=== PATIENT | male | born 1985 | race American Indian/Alaskan Native ===

== ENCOUNTER 2021-07-13 09:27 | Emergency (ER) | payer SELFPAY ==
[2021-07-13] MEDS ORDERED: KETOROLAC 30 MG/1 ML INJ IV ONE (11:15)
--- NOTE | 2021-07-13 11:18 | Emergency Department Report ---
ED General Adult HPI - General Chief complaint: Wound/Laceration Stated complaint: RECTUM WOUND WITH DRAINAGE Time Seen by Provider: 07/13/21 10:39 Source: patient, EMS Mode of arrival: Stretcher Limitations: No Limitations - History of Present Illness Initial comments: 36-year-old -[place] male patient presents with complaints of intermittent pain and drainage around the rectal for the past month. He reports over the past few days he has began having body aches and chills and fatigue. He reports history of a pilonidal cyst which she has surgically removed a long time ago and that he is now having pain in that same area again. He rates his current pain as a 9/10 in severity. He denies any abdominal pain. He states he is still defecating, however the pain worsens with defecation. No melena/hematochezia or nausea/vomiting or fever per patient. Other past medical history includes some type of colitis per patient. - Related Data Previous Rx's Medication Instructions Recorded Last Taken Type Acetaminophen/Codeine [Tylenol 1 tab PO Q8H PRN #10 tab 07/13/21 Unknown Rx /Codeine # 3 tab] Amoxicillin/Potassium Clav 1 each PO BID 10 Days #20 tab 07/13/21 Unknown Rx [Augmentin 875-125 Tablet] Ibuprofen [Motrin 800 MG tab] 800 mg PO Q8HR PRN #20 tablet 07/13/21 Unknown Rx Mupirocin [Bactroban 2% OINT] 1 applic TP TID 10 Days #1 tube 07/13/21 Unknown Rx Sulfamethoxazole/Trimethoprim 1 each PO BID 10 Days #20 tab 07/13/21 Unknown Rx [Bactrim DS TAB] ED Review of Systems ROS: Stated complaint: RECTUM WOUND WITH DRAINAGE Other details as noted in HPI Constitutional: see HPI Respiratory: cough. denies: shortness of breath Cardiovascular: denies: chest pain Gastrointestinal: denies: abdominal pain, nausea, vomiting Genitourinary: denies: urgency, dysuria, frequency, hematuria ED Past Medical Hx - Medications Home Medications: Home Medications Medication Instructions Recorded Confirmed Last Taken Type Acetaminophen/Codeine [Tylenol 1 tab PO Q8H PRN #10 tab 07/13/21 Unknown Rx /Codeine # 3 tab] Amoxicillin/Potassium Clav 1 each PO BID 10 Days #20 tab 07/13/21 Unknown Rx [Augmentin 875-125 Tablet] Ibuprofen [Motrin 800 MG tab] 800 mg PO Q8HR PRN #20 tablet 07/13/21 Unknown Rx Mupirocin [Bactroban 2% OINT] 1 applic TP TID 10 Days #1 tube 07/13/21 Unknown Rx Sulfamethoxazole/Trimethoprim 1 each PO BID 10 Days #20 tab 07/13/21 Unknown Rx [Bactrim DS TAB] ED Physical Exam - General Limitations: No Limitations General appearance: alert, in no apparent distress, obese - Head Head exam: Present: atraumatic, normocephalic - Neck Neck exam: Present: normal inspection - Respiratory Respiratory exam: Absent: respiratory distress - Cardiovascular Cardiovascular Exam: Present: regular rate, normal rhythm - GI/Abdominal GI/Abdominal exam: Present: soft. Absent: tenderness - Rectal Rectal exam: Present: other (Tenderness noted to the outside of the anus with small opening with active purulent drainage noted to right inner buttock which appears to be a fistula; there is surrounding induration; no obvious cellulitis or pilonidal abscess) - Neurological Exam Neurological exam: Present: alert, oriented X3 - Psychiatric Psychiatric exam: Present: normal affect, normal mood - Skin Skin exam: Present: warm, dry, intact, normal color. Absent: rash ED Course Vital Signs 07/13/21 10:57 Temperature 98.9 F Pulse Rate 85 Respiratory 18 Rate Blood Pressure 151/94 O2 Sat by Pulse 96 Oximetry ED Medical Decision Making - Lab Data Result diagrams: 07/13/21 11:45 07/13/21 11:45 Lab Results 07/13/21 07/13/21 Range/Units 11:45 11:45 WBC 6.5 (4.5-11.0) K/mm3 RBC 5.20 H (3.65-5.03) M/mm3 Hgb 13.7 (11.8-15.2) gm/dl Hct 43.1 (35.5-45.6) % MCV 83 L (84-94) fl MCH 26 L (28-32) pg MCHC 32 (32-34) % RDW 15.9 H (13.2-15.2) % Plt Count 433 (140-440) K/mm3 Lymph % (Auto) 29.6 (13.4-35.0) % Clayton % (Auto) 6.5 (0.0-7.3) % Eos % (Auto) 0.2 (0.0-4.3) % Baso % (Auto) 0.8 (0.0-1.8) % Lymph # (Auto) 1.9 (1.2-5.4) K/mm3 Clayton # (Auto) 0.4 (0.0-0.8) K/mm3 Eos # (Auto) 0.0 (0.0-0.4) K/mm3 Baso # (Auto) 0.1 (0.0-0.1) K/mm3 Seg Neutrophils % 62.9 (40.0-70.0) % Seg Neutrophils # 4.1 (1.8-7.7) K/mm3 Sodium 144 (137-145) mmol/L Potassium 4.5 (3.6-5.0) mmol/L Chloride 108.6 H (98-107) mmol/L Carbon Dioxide 25 (22-30) mmol/L Anion Gap 15 mmol/L BUN 8 L (9-20) mg/dL Creatinine 0.9 (0.8-1.3) mg/dL Estimated GFR > 60 ml/min BUN/Creatinine Ratio 9 % Glucose 98 (75-100) mg/dL Calcium 9.9 (8.4-10.2) mg/dL - Radiology Data Radiology results: report reviewed CT abdomen pelvis w con INDICATION / CLINICAL INFORMATION: rectal pain, drainage OMNI 300 100ML. TECHNIQUE: Axial CT imaging of abdomen and pelvis was obtained with IV contrast. Coronal and sagittal reformatted imaging obtained and reviewed. All CT scans at this location are performed using CT dose reduction for ALARA by means of automated exposure control. COMPARISON: None available. FINDINGS: CT abdomen with contrast demonstrates normal appearance of the liver, spleen, pancreas, kidneys, and adrenal glands. Gallbladder is present and without visible abnormality. No biliary dilatation. Abdominal aorta is unremarkable. CT pelvis with contrast demonstrates focal inflammatory change in the soft tissues adjacent to the right side of the rectum. There is appears to be a sinus tract extending from the right side of the rectum to the intragluteal cleft on the right. I do not see drainable fluid however, the overall appearance is worrisome for either rectal fistula with or without abscess. No additional abnormal findings are seen within the pelvis. GI tract otherwise is unremarkable. A normal appendix is present in the right lower quadrant. There are multiple ill-defined pulmonary opacities/masses present in both lung bases, but no pleural effusion. The largest opacity/mass is in the right posterior lung base measuring 12 mm. No cavitation noted. These are favored to be infectious or inflammatory in etiology, but malignancy is not included. Visualized skeletal structures demonstrate hardware in the right ilium, but no acute abnormality. IMPRESSION: 1. Inflammatory process seen adjacent to the right side of the rectum extending to the skin of the intergluteal cleft. 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 It is difficult to discern whether there is small accompanying abscess. 2. Additionally there are pulmonary opacities/masses within both lung bases. I would favor inflammatory/infectious over malignancy. Certainly the possibility of atypical pneumonias should be considered. - Medical Decision Making 36-year-old -[place] male patient presents with complaints of intermittent pain and drainage around the rectal for the past month. He reports over the past few days he has began having body aches and chills and fatigue. He reports history of a pilonidal cyst which she has surgically removed a long time ago and that he is now having pain in that same area again. He rates his current pain as a 9/10 in severity. He denies any abdominal pain. He states he is still defecating, however the pain worsens with defecation. No me nory/hematochezia or nausea/vomiting or fever per patient. Other past medical history includes some type of colitis per patient. White count is normal CBC. No acute abnormalities noted on BMP. CT shows the followin. Inflammatory process seen adjacent to the right side of the rectum extending to the skin of the intergluteal cleft. Overall appearance is most likely secondary to rectal fi stula. It is difficult to discern whether there is small accompanying abscess. 2. Additionally there are pulmonary opacities/masses within both lung bases. I would favor inflammatory/infectious over malignancy. Certainly the possibility of atypical pneumonias should be considered. Will treat perianal infection with Augmentin patient admits to cough without shortness of breath or hemoptysis. Given findings in lung bases on CT, will treat for atypical pneumonia with Bactrim. He denies history of HIV. Recommend follow-up with a primary care provider for further evaluation and STI testing within the next 5 days. Patient also recommended to get COVID-19 testing within the next 2 days and self quarantine until further instructed he is otherwise well-appearing stable for discharge home. Discussed in detail signs symptoms that should prompt immediate return to emergency department with patient who verbalized understanding Critical care attestation.: If time is entered above; I have spent that time in minutes in the direct care of this critically ill patient, excluding procedure time. ED Disposition Clinical Impression: Perianal infection, Perianal fistula, Atypical pneumonia, Abnormal CT scan of lung Disposition: HOME / SELF CARE / HOMELESS Is pt being admited?: No Condition: Stable Instructions: Community-Acquired Pneumonia, Adult, [id number], Anal Fissure, Adult, Anorectal Abscess Prescriptions: Amoxicillin/Potassium Clav [Augmentin 875-125 Tablet] 1 each PO BID 10 Days #20 tab Sulfamethoxazole/Trimethoprim [Bactrim DS TAB] 1 each PO BID 10 Days #20 tab Mupirocin [Bactroban 2% OINT] 1 applic TP TID 10 Days #1 tube Ibuprofen [Motrin 800 MG tab] 800 mg PO Q8HR PRN #20 tablet PRN Reason: Pain, Moderate (4-6) Acetaminophen/Codeine [Tylenol /Codeine # 3 tab] 1 tab PO Q8H PRN #10 tab PRN Reason: Pain , Severe (7-10) Referrals: PRIMARY CARE, [Primary Care Provider] - 3-5 Days [facility] [Provider Group] - 3-5 Days Forms: Work/School Release Form(ED)
[2021-07-13] MEDS ORDERED: KETOROLAC 30 MG/1 ML INJ ONE (12:09)
[2021-07-13 12:47] LABS: Basophils # (Auto) 0.1 K/mm3 (0.0-0.1); Basophils % (Auto) 0.8 % (0.0-1.8); Eosinophils % (Auto) 0.2 % (0.0-4.3); Hematocrit 43.1 % (35.5-45.6); Hemoglobin 13.7 gm/dl (11.8-15.2); Lymphocytes # (Auto) 1.9 K/mm3 (1.2-5.4); Lymphocytes % (Auto) 29.6 % (13.4-35.0); Mean Corpuscular HGB Conc 32 % (32-34); Mean Corpuscular Volume 83 fl (84-94); Monocytes # (Auto) 0.4 K/mm3 (0.0-0.8); Monocytes % (Auto) 6.5 % (0.0-7.3); Platelet Count 433 K/mm3 (140-440); Red Cell Distribution Width 15.9 % (13.2-15.2)
[2021-07-13 13:08] LABS: BUN/Creatinine Ratio 9; Blood Urea Nitrogen 8 mg/dL (9-20); Calcium 9.9 mg/dL (8.4-10.2); Hemolysis Index 23
--- NOTE | 2021-07-13 14:10 | Cat Scan Report ---
CT abdomen pelvis w con INDICATION / CLINICAL INFORMATION: rectal pain, drainage OMNI 300 100ML. TECHNIQUE: Axial CT imaging of abdomen and pelvis was obtained with IV contrast. Coronal and sagittal reformatte d imaging obtained and reviewed. All CT scans at this location are performed using CT dose reduction for ALARA by means of automated exposure control. COMPARISON: None available. FINDINGS: CT abdomen with contrast demonstrates normal appearance of the liver, spleen, pancreas, kidneys, and adrenal glands. Gallbladder is present and without visible abnormality. No biliary dilatation. Abdomi nal aorta is unremarkable. CT pelvis with contrast demonstrates focal inflammatory change in the soft tissues adjacent to the ri ght side of the rectum. There is appears to be a sinus tract extending from the right side of the rec aby to the intragluteal cleft on the right. I do not see drainable fluid however, the overall appeara nce is worrisome for either rectal fistula with or without abscess. No additional abnormal findings are seen within the pelvis. GI tract otherwise is unremarkable. A nor mal appendix is present in the right lower quadrant. There are multiple ill-defined pulmonary opacities/masses present in both lung bases, but no pleural effusion. The largest opacity/mass is in the right posterior lung base measuring 12 mm. No cavitation noted. These are favored to be infectious or inflammatory in etiology, but malignancy is not include d. Visualized skeletal structures demonstrate hardware in the right ilium, but no acute abnormality. IMPRESSION: 1. Inflammatory process seen adjacent to the right side of the rectum extending to the skin of the in tergluteal cleft. 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 It is difficult to d iscern whether there is small accompanying abscess. 2. Additionally there are pulmonary opacities/masses within both lung bases. I would favor inflammato ry/infectious over malignancy. Certainly the possibility of atypical pneumonias should be considered. Signer Name: Basilia Ramirez MD Signed: 07/13/2021 2:06 PM Workstation Name: [id number]
[2021-07-13] MEDS ORDERED: HYDROcodone/ACETAMINOPHEN 5-325 MG TAB PO ONE ×2 (15:06)
[2021-07-13 15:13] VITALS: BP 144/74
== END 2021-07-13 16:19 ==
LOC: ED 09:27
DX: K04.5 Chronic apical periodontitis (principal); K60.3 Anal fistula; J18.9 Pneumonia, unspecified organism; R91.8 Other nonspecific abnormal finding of lung field
CPT/HCPCS: 36415; 74177; 80048; 85025; 96374; 99284; J1885; Q9967

== ENCOUNTER 2022-01-26 03:49 | Emergency (ER) | payer SELFPAY ==
[2022-01-26 04:04] VITALS: BP 134/85
--- NOTE | 2022-01-26 07:50 | Event Note ---
ED Screening Note ED Screening Note: pt reports buttox abscess CN Dewayne aware of pt This initial assessment/diagnostic orders/clinical plan/treatment(s) is/are subject to change based on patients health status, clinical progression and re- assessment by fellow clinical providers in the ED. Further treatment and workup at subsequent clinical providers discretion. Patient/guardian urged not to elope from the ED as their condition may be serious if not clinically assessed and managed. Initial orders include: ER eval
[2022-01-26] MEDS ORDERED: DOXYCYCLINE 100 MG CAP PO ONE (09:47)
[2022-01-26] MEDS ORDERED: IBUPROFEN 400 MG TAB PO ONE (09:47)
[2022-01-26] MEDS ORDERED: ACETAMINOPHEN 325 MG TAB PO ONE (09:47)
--- NOTE | 2022-01-26 09:48 | Emergency Department Report ---
ED General Adult HPI - General Chief complaint: Skin/Abscess/Foreign Body Stated complaint: CYST/BUMP ON BUTTOCKS Time Seen by Provider: 01/26/22 09:38 Source: patient, RN notes reviewed Mode of arrival: Ambulatory Limitations: No Limitations - History of Present Illness Initial comments: The patient was evaluated in the emergency department for symptoms described in the history of present illness. He/she was evaluated in the context of the global COVID-19 pandemic, which necessitated consideration that the patient might be at risk for infection with the virus that causes COVID-19. Institutional protocols and algorithms that pertain to the evaluation of patients at risk for COVID-19 are in a state of rapid change based on information released by regulatory bodies including the CDC and federal and state organizations. These policies and algorithms were followed during the patient's care in the emergency department. Please note that these policies, procedures and recommendations changed on a rapid basis. During the history and physical examination, I am chaperoned by nurse Ap Raymond. This is a pleasant and cooperative 36-year-old gentleman who presents to the department today with a complaint of pain on his left medial buttock cheek. Positive discharge. Positive pain. No fever, chills, nausea vomiting or diarrhea. No additional injuries or complaints. Reports that he has had "cysts" which have popped before. It is currently draining -: days(s) Location: buttocks, left Quality: aching Consistency: constant Improves with: rest Worsens with: movement Associated Symptoms: denies other symptoms - Related Data Previous Rx's Medication Instructions Recorded Last Taken Type Mupirocin [Bactroban 2% OINT] 1 applic TP TID 10 Days #1 tube 07/13/21 Unknown Rx Acetaminophen [Non-Aspirin Extra 500 mg PO Q6HR PRN #30 tablet 01/26/22 Unknown Rx Strength] Doxycycline Hyclate [Doxycycline 100 mg PO Q12HR #10 tab 01/26/22 Unknown Rx Hyclate TAB] Ibuprofen [Motrin] 600 mg PO Q8H PRN #30 tablet 01/26/22 Unknown Rx Allergies Allergy/AdvReac Type Severity Reaction Status Date / Time No Known Allergies Allergy Unverified 01/26/22 04:03 ED Review of Systems ROS: Stated complaint: CYST/BUMP ON BUTTOCKS Other details as noted in HPI Comment: All other systems reviewed and negative Musculoskeletal: other (Left gluteal cheek pain) Skin: lesions ED Past Medical Hx - Medications Home Medications: Home Medications Medication Instructions Recorded Confirmed Last Taken Type Mupirocin [Bactroban 2% OINT] 1 applic TP TID 10 Days #1 tube 07/13/21 Unknown Rx Acetaminophen [Non-Aspirin Extra 500 mg PO Q6HR PRN #30 tablet 01/26/22 Unknown Rx Strength] Doxycycline Hyclate [Doxycycline 100 mg PO Q12HR #10 tab 01/26/22 Unknown Rx Hyclate TAB] Ibuprofen [Motrin] 600 mg PO Q8H PRN #30 tablet 01/26/22 Unknown Rx ED Physical Exam - General Limitations: No Limitations General appearance: alert, in no apparent distress - Head Head exam: Present: atraumatic, normocephalic - Eye Eye exam: Present: normal appearance, EOMI. Absent: nystagmus - ENT ENT exam: Present: normal exam, normal orophraynx, mucous membranes moist, normal external ear exam - Neck Neck exam: Present: normal inspection, full ROM. Absent: tenderness, meningismus - Respiratory Respiratory exam: Present: normal lung sounds bilaterally. Absent: respiratory distress, wheezes, rales, rhonchi, stridor, decreased breath sounds - Cardiovascular Cardiovascular Exam: Present: regular rate, normal rhythm, normal heart sounds. Absent: bradycardia, tachycardia, irregular rhythm, systolic murmur, diastolic murmur, rubs, gallop - GI/Abdominal GI/Abdominal exam: Present: soft. Absent: distended, tenderness, guarding, rebound, rigid, pulsatile mass - Rectal Rectal exam: Absent: normal inspection (Patient provides verbal consent for gluteal examination. Chaperoned by nurse Ap Raymond. On the left medial inferior gluteal cheek, there is an area of induration, approximately 2 x 2 cm. There is minimal purulent discharge. There is no fluctuance) - Extremities Exam Extremities exam: Present: normal inspection, full ROM, normal capillary refill, other (2+ pulses noted in the bilateral upper and lower extremities. There is no palpable cord. negative Homans sign. Muscular compartments are soft. The pelvis is stable.). Absent: pedal edema, calf tenderness - Back Exam Back exam: Present: normal inspection. Absent: tenderness, CVA tenderness (R), CVA tenderness (L), paraspinal tenderness, vertebral tenderness - Neurological Exam Neurological exam: Present: alert, oriented X3, normal gait, other (No facial droop. Tongue midline. Extraocular movements intact bilaterally. Facial sensation intact to light touch in V1, V2, V3 distribution bilaterally. 5 and a 5 strength in 4 extremities. Sensation intact to light touch in 4 extremities.). Absent: motor sensory deficit - Psychiatric Psychiatric exam: Present: normal affect, normal mood - Skin Skin exam: Present: warm, dry, intact, other (There is left gluteal cheek induration. There is minimal discharge. There is no fluctuance.) ED Course Vital Signs 01/26/22 03:58 Temperature 98.7 F Pulse Rate 88 Respiratory 17 Rate Blood Pressure 134/85 [Right] O2 Sat by Pulse 98 Oximetry ED Medical Decision Making - Lab Data Vital Signs 01/26/22 03:58 Temperature 98.7 F Pulse Rate 88 Respiratory 17 Rate Blood Pressure 134/85 [Right] O2 Sat by Pulse 98 Oximetry - Medical Decision Making Differential diagnosis, including but not limited to: Skin induration, cellulitis Assessment and plan: 36-year-old gentleman with left medial gluteal skin induration, with minimal discharge. There is no surrounding fluctuance. There is no indication for incision and drainage at this time. Warm compresses, local wound hygiene, appropriate oral antibiotics, supportive pain medication, outpatient follow-up. All questions answered. Return precautions reviewed Critical care attestation.: If time is entered above; I have spent that time in minutes in the direct care of this critically ill patient, excluding procedure time. ED Disposition Clinical Impression: Skin induration Disposition: 01 HOME / SELF CARE / HOMELESS Is pt being admited?: No Does the pt Need Aspirin: No Condition: Good Instructions: Cellulitis, Adult Additional Instructions: Please apply warm compresses to the affected area. Make certain to keep dry, and clean very thoroughly. Wear loosefitting clothing. Apply ice packs and warm compresses as often as as needed. At this point in time, patient does not require incision and drainage. Follow-up with a primary care doctor or surgeon in the next 7 to 10 days for repeat checkup and evaluation. Please return to the emergency room right away with new pain, worsened pain, migration of pain, projectile vomiting, change in mental status, confusion, in ability tolerate liquid feeds, new, worsened or different symptoms not present on the initial emergency room evaluation Referrals: [facility] [Provider Group] - 7-10 days LENORE HORTON MD [Staff Physician] - 7-10 days Forms: Work/School Release Form(ED)
== END 2022-01-26 13:01 | disposition home or self-care (01) ==
LOC: ED 03:49
DX: R23.4 Changes in skin texture (principal)
CPT/HCPCS: 99283